=== PATIENT | female | born 1975 | race Caucasian/White ===

== ENCOUNTER → 2022-09-16 | Outpatient (REF) | LOC: M LABSMTC 09:28 | PROVIDERS: ATTEND Family Medicine | DX: Z11.52 Encounter for screening for COVID-19 (principal) ==

== ENCOUNTER 2023-07-16 06:56 | Outpatient (RCR) | payer OTHER | END 2023-07-19 | LOC: M PT 06:56 | PROVIDERS: ATTEND Orthopaedic Surgery | DX: S82.852A Displaced trimalleolar fracture of left lower leg, initial encounter for closed fracture (principal) ==

== ENCOUNTER 2023-07-21 10:35 | Outpatient (RCR) | payer OTHER | END 2023-08-19 | LOC: M PT 10:35 | PROVIDERS: ATTEND Orthopaedic Surgery | DX: S82.852A Displaced trimalleolar fracture of left lower leg, initial encounter for closed fracture (principal); X58.XXXA Exposure to other specified factors, initial encounter; Y92.9 Unspecified place or not applicable ==